=== PATIENT | female | born 1975 | race Caucasian/White ===

== ENCOUNTER → 2019-03-21 | Outpatient (CLI) | payer BC, OTHER ==
[~2019-03-21] MED LIST: CITA20 PO; CYCL10 PO; Norco 5-325 Ta1 EACH PO; SUPRENZA ODT37.5 MG PO; TRAZ50 PO
== END | disposition home or self-care (01) ==
LOC: PLD 07:37 → LAB SHORT 07:37
DX: D22.39 Melanocytic nevi of other parts of face (principal); D22.4 Melanocytic nevi of scalp and neck; D22.5 Melanocytic nevi of trunk
CPT/HCPCS: 88305

== ENCOUNTER → 2019-03-28 | Outpatient (CLI) | payer BC, OTHER | END | disposition home or self-care (01) | LOC: LAB SHORT 14:29 → PLD 14:29 | DX: D22.39 Melanocytic nevi of other parts of face (principal) | CPT/HCPCS: 88305 ==

== ENCOUNTER 2021-02-21 01:36 | Emergency (ER) | payer BC, SELFPAY ==
[~2021-02-21] VITALS: Ht 165.1 cm; Wt 95.2 kg
[2021-02-21] MEDS ORDERED: OMEP20ER PO (04:37)
[2021-02-21] MEDS ORDERED: DESVENLAFAXINE100 M3 PO (04:38)
[2021-02-21] MEDS ORDERED: TRAZ100 PO (04:38)
== END 2021-02-21 06:29 | disposition home or self-care (01) ==
LOC: ER 01:36
DX: R51.9 Headache, unspecified (principal); Z79.899 Other long term (current) drug therapy
CPT/HCPCS: 96372-59; 96374; 96375; 99283-25; J1200; J1885; J2405; J3030; J7030

== ENCOUNTER → 2022-01-12 | Outpatient (CLI) | payer BC ==
[~2022-01-12] MED LIST changes: +DESVENLAFAXINE100 M3 PO; +OMEP20ER PO; +TRAZ100 PO
== END | disposition home or self-care (01) ==
LOC: LAB SHORT 11:27 → PLD 11:27
DX: D48.5 Neoplasm of uncertain behavior of skin (principal)
CPT/HCPCS: 88305

== ENCOUNTER 2024-03-21 06:48 | Day surgery (SDC) | payer BC ==
[~2024-03-21] VITALS: Ht 165.1 cm; Wt 95.8 kg
[2024-03-21] MEDS ORDERED: TERB250 (07:16)
[2024-03-21] MEDS ORDERED: CHLO25B (07:16)
[2024-03-21] MEDS ORDERED: AMLO5 (07:17)
[2024-03-21] MEDS ORDERED: POTA10T (07:17)
[2024-03-21] MEDS ORDERED: ZOLP10 (07:18)
[2024-03-21] MEDS ORDERED: DERMACINRX FOL1 EAC2 (07:18)
[2024-03-21] MEDS ORDERED: Lactated Ringer's 1,000 ML IV ONE ×2 (07:37→07:47)
[2024-03-21] MEDS ORDERED: propofoL 50 ML IV ONE ×2 (07:37→08:38)
[2024-03-21 09:24] VITALS: BP 112/82
== END 2024-03-21 09:24 | disposition home or self-care (01) ==
LOC: ORSCSDS 06:48
PROVIDERS: Internal Medicine Gastroenterology
PROC: 0DBM8ZX Excision of Descending Colon, Via Natural or Artificial Opening Endoscopic, Diagnostic (ICD-10-PCS; principal; 2024-03-21 08:00)
PROC: 0DB58ZX Excision of Esophagus, Via Natural or Artificial Opening Endoscopic, Diagnostic (ICD-10-PCS; 2024-03-21 08:00)
DX: R13.10 Dysphagia, unspecified (principal); K21.9 Gastro-esophageal reflux disease without esophagitis; Z12.11 Encounter for screening for malignant neoplasm of colon; D12.4 Benign neoplasm of descending colon; K44.9 Diaphragmatic hernia without obstruction or gangrene; E78.5 Hyperlipidemia, unspecified; I10 Essential (primary) hypertension; F41.9 Anxiety disorder, unspecified; Z86.16 Personal history of COVID-19; F32.A Depression, unspecified; E66.9 Obesity, unspecified; Z68.34 Body mass index [BMI] 34.0-34.9, adult; Z79.899 Other long term (current) drug therapy
CPT/HCPCS: 88305; J2704; J7120

== ENCOUNTER 2025-08-24 19:54 | Emergency (ER) | payer BC ==
[~2025-08-24] VITALS: Ht 165.1 cm; Wt 88.5 kg
[~2025-08-24 19:54] MED LIST changes: +AMLO5; +CHLO25B; +DERMACINRX FOL1 EAC2; +POTA10T; +TERB250; +ZOLP10
[2025-08-24 20:03] VITALS: BP 155/99
[2025-08-24] MEDS ORDERED: Ketorolac Tromethamine 30mg Vial IM ONE (20:15)
== END 2025-08-24 23:04 | disposition home or self-care (01) ==
LOC: ER 19:54
DX: S01.111A Laceration without foreign body of right eyelid and periocular area, initial encounter (principal); Z79.899 Other long term (current) drug therapy; Z23 Encounter for immunization; W18.30XA Fall on same level, unspecified, initial encounter
CPT/HCPCS: 12002; 90471; 90715; 96372; 99282-25; J1885